=== PATIENT | male | born 1975 | race Caucasian/White ===

== ENCOUNTER 2020-05-26 15:42 | Emergency (ER) | payer SELFPAY ==
[~2020-05-26] VITALS: Ht 185.4 cm; Wt 118.1 kg
[2020-05-26] MEDS ORDERED: METH4TAB2 PO (16:59)
--- NOTE | 2020-05-26 17:00 | PHYS DOC ---
General Adult EDM: Chief Complaint: NECK PAIN HPI: HPI: Patient is a 44-year-old male who presents stating he feels like he is got a swollen area to the back of his neck. He states when he pushes on it it causes some discomfort. In the past he has had a scan that said it may have been a fatty tumor and he was supposed to get it out but it is growing in size. There is no redness. No radicular symptoms. [] Review of Systems: Review of Systems: Constitutional: Denies fever or chills. [] Eyes: Denies change in visual acuity. [] HENT: Denies nasal congestion or sore throat. [] Respiratory: Denies cough or shortness of breath. [] Cardiovascular: Denies chest pain or edema. [] GI: Denies abdominal pain, nausea, vomiting, bloody stools or diarrhea. [] : Denies dysuria. [] Musculoskeletal: Per HPI [] Integument: Per HPI] Neurologic: Denies headache, focal weakness or sensory changes. [] Endocrine: Denies polyuria or polydipsia. [] Lymphatic: Denies swollen glands. [] Psychiatric: Denies depression or anxiety. [] Heart Score: Risk Factors: Risk Factors: DM, Current or recent (<one month) smoker, HTN, HLP, family history of CAD, obesity. Risk Scores: Score 0 - 3: 2.5% MACE over next 6 weeks - Discharge Home Score 4 - 6: 20.3% MACE over next 6 weeks - Admit for Clinical Observation Score 7 - 10: 72.7% MACE over next 6 weeks - Early Invasive Strategies Physical Exam: PE: Constitutional: Well developed, well nourished, no acute distress, non-toxic appearance. [] HENT: Normocephalic, atraumatic, bilateral external ears normal, oropharynx moist, no oral exudates, nose normal. [] Eyes: PERRLA, EOMI, conjunctiva normal, no discharge. [] Neck: Normal range of motion, no tenderness, supple, no stridor. [] Cardiovascular:Heart rate regular rhythm, no murmur [] Lungs & Thorax: Bilateral breath sounds clear to auscultation [] Abdomen: Bowel sounds normal, soft, no tenderness, no masses, no pulsatile masses. [] Skin: Warm, dry, no erythema, no rash. [] Back: He has palpable occipital lymph nodes right greater than left no abscess no cellulitis. [] Extremities: No tenderness, no cyanosis, no clubbing, ROM intact, no edema. [] Neurologic: Alert and oriented X 3, normal motor function, normal sensory function, no focal deficits noted. [] Psychologic: Very anxious. [] EKG: EKG: [] Radiology/Procedures: Radiology/Procedures: [] Course & Med Decision Making: Course & Med Decision Making Pertinent Labs and Imaging studies reviewed. (See chart for details) [] Dragon Disclaimer: Dragon Disclaimer: This electronic medical record was generated, in whole or in part, using a voice recognition dictation system. Departure Departure Impression: Primary Impression: Lymphadenitis Disposition: 01 HOME, SELF-CARE Condition: STABLE Referrals: NO PCP (PCP) Additional Instructions: You have a swollen lymph node. I will start you on some antibiotics for a few days and the swelling should decrease. Scripts Methylprednisolone (MEDROL) 4 Mg Tab.ds.pk 1 PKG PO UD for lymphadenitis, #1 PKG Prov: CAM FRANCOIS DO 05/26/20 Justicifation of Admission Dx: Justifications for Admission: Justification of Admission Dx: No CAM FRANCOIS DO May 26, 2020 17:00
[2020-05-26 17:22] VITALS: BP 161/98
[2020-05-26] MEDS ORDERED: diazePAM 5 MG TABLET PO ONE (18:00)
[2020-05-26] MEDS ORDERED: DEXAMETHASONE SOD PHOS 20 MG/5 ML VIAL. IM ONE (18:00)
== END 2020-05-26 18:00 | disposition home or self-care (01) ==
LOC: ER 15:42
DX: I88.9 Nonspecific lymphadenitis, unspecified (principal)
CPT/HCPCS: 96372; 99283; J1100